=== PATIENT | male | born 1980 | race Hispanic/Latino ===

== ENCOUNTER 2021-12-26 08:17 | Emergency (ER) | payer SELFPAY ==
[2021-12-26] MEDS ORDERED: Cephalexin 250 MG CAP ONE (09:08)
[2021-12-26] MEDS ORDERED: HYDROcodone/Acetaminophen 10/325 mg Tablet ONE (09:08)
[2021-12-26] MEDS ORDERED: Boostrix 0.5 ML (Tdap) VIAL (>/=7 yrs of age) ONE (09:08)
== END 2021-12-26 09:25 | disposition home or self-care (01) ==
LOC: BURERS 08:17
DX: S91.332A Puncture wound without foreign body, left foot, initial encounter (principal); S91.331A Puncture wound without foreign body, right foot, initial encounter; E11.9 Type 2 diabetes mellitus without complications; I10 Essential (primary) hypertension; E78.5 Hyperlipidemia, unspecified; Z79.84 Long term (current) use of oral hypoglycemic drugs; Z79.899 Other long term (current) drug therapy; W22.8XXA Striking against or struck by other objects, initial encounter
CPT/HCPCS: 90471; 90715